=== PATIENT | female | born 1935 | race Caucasian/White ===

== ENCOUNTER 2021-03-27 11:01 | Observation (INO) | payer MEDICARE, BC ==
[2021-03-27] MEDS ORDERED: Verapamil 5 MG/2 ML VIAL ONE (12:05)
[2021-03-27] MEDS ORDERED: Heparin 10,000 UNITS/ 10 ML VIAL ONE (12:05)
[2021-03-27] MEDS ORDERED: Adenosine 6 MG/2 ML VIAL ONE (12:05)
[2021-03-27] MEDS ORDERED: Nitroglycerin 50 MG/250 ML BOT 250 ML ONE (12:05)
[2021-03-27 12:06] LABS: #Basophils 0.1 10x3/uL (0.0-0.2); #Eosinphils 0.2 10x3/uL (0.0-0.5); #Neutrophils 4.1 10x3/uL (1.5-8.4); %Basophils 0.7 % (0.0-2.0); %Eosinophils 3.1 % (0.0-6.0); %Neutrophils 60.8 % (40.0-75.0); Mean Corpuscular HGB CONC 34.1 g/dL (32.0-36.0); Mean Corpuscular Hemoglobin 31.5 pg (27.0-33.0); Mean Corpuscular Volume 92.6 fl (81.6-98.3); Platelet Count 251 10x3/uL (150-450); Red Blood Cell (RBC) Count 4.44 10x6/uL (3.90-5.03); White Blood Cell (WBC) Count 6.8 10x3/uL (3.5-10.5)
[2021-03-27] MEDS ORDERED: Ondansetron PF 4 MG/2 ML Vial ONE (12:06)
[2021-03-27] MEDS ORDERED: Atropine Sulfate 0.4 mg/1 ml Vial ONE (12:06)
[2021-03-27] MEDS ORDERED: Bivalirudin 250 MG VIAL ONE (12:06)
[2021-03-27] MEDS ORDERED: Midazolam HCl 2 mg/2 ml Vial ONE (12:07)
[2021-03-27] MEDS ORDERED: Fentanyl 100 MCG/2 ML VIAL ONE (12:07)
[2021-03-27] MEDS ORDERED: Nitroglycerin 2% Ointment 1 INCH/1 GM Packet ONE (12:10)
[2021-03-27] MEDS ORDERED: Aspirin Chewable 81 MG TAB ONE (12:11)
[2021-03-27] MEDS ORDERED: Morphine 4 MG/ML VIAL ONE (12:12)
[2021-03-27 12:16] LABS: ALT (SGPT) 23 U/L (8-55); AST (SGOT) 21 U/L (5-34); Albumin 4.4 g/dL (3.4-4.8); Alkaline Phosphatase 33 U/L (40-110); Anion Gap 15 mmol/L (10-20); BUN (Urea Nitrogen) 13 mg/dL (9.8-20.1); Bilirubin, Total 0.4 mg/dL (0.2-1.2); CK (CPK) 30 U/L (29-168); Calc. Creatinine Clearance 0 mL/min (70-130); Calcium 9.4 mg/dL (7.8-10.44); Carbon Dioxide 23 mmol/L (23-31); Chloride 95 mmol/L (98-107); Globulin 2.9 g/dL (2.4-3.5); Glucose 109 mg/dL (83-110); Lipase 49 U/L (8-78); Potassium 4.4 mmol/L (3.5-5.1); Protein, Total 7.3 g/dL (5.8-8.1); Sodium 129 mmol/L (136-145)
[2021-03-27] MEDS ORDERED: Lidocaine 1% PF 5 ML VIAL ONE (12:47)
[2021-03-27] MEDS ORDERED: HYDROcodone/Acetaminophen 10/325 mg Tablet PO PRN (12:50)
[2021-03-27] MEDS ORDERED: Acetaminophen 325 MG TAB PO PRN (12:50)
[2021-03-27] MEDS ORDERED: Ondansetron ODT 4 MG TAB PO PRN (12:50)
[2021-03-27] MEDS ORDERED: Senokot S 8.6-50 MG TAB PO PRN (12:50)
[2021-03-27] MEDS ORDERED: Loperamide HCl 2 MG CAP PO PRN (12:50)
[2021-03-27] MEDS ORDERED: Zolpidem Tartrate 5 MG TAB PO PRN (12:50)
[2021-03-27] MEDS ORDERED: FLU VACC QS2021-22(65YR UP)/PF 240 MCG/0.7 ML SYRINGE IM ONE (16:30)
[2021-03-27 20:12] VITALS: BP 129/60; TEMP 98.4
[2021-03-27] MEDS ORDERED: Famotidine 20 MG TAB PO SCH (21:00)
[2021-03-27] MEDS ORDERED: LOVASTATIN 20 MG PO SCH (21:00)
[2021-03-27] MEDS ORDERED: metFORMIN 500 MG TAB PO SCH (21:00)
[2021-03-28] MEDS ORDERED: Aspirin 81 mg Enteric Coated Tablet PO SCH (09:00)
[2021-03-28] MEDS ORDERED: SITAGLIPTIN PHOSPHATE 100 MG PO SCH (09:00)
[2021-03-28] MEDS ORDERED: ALPRAZolam 0.5 MG TAB PO SCH (09:00)
[2021-03-28] MEDS ORDERED: Enoxaparin Sodium 40 MG/0.4 ML SYRINGE SC SCH (09:00)
[2021-03-28] MEDS ORDERED: Lisinopril 20 MG TAB PO SCH (09:00)
[2021-03-28] MEDS ORDERED: NIFEdipine XL 60 MG TAB PO SCH (09:00)
== END 2021-03-27 20:35 | disposition home or self-care (01) ==
LOC: CSHERS 11:01 → CSHCCL 15:58 → CSHTELE 17:06
PROVIDERS: ADMIT Specialist; ATTEND Specialist
DX: I25.110 Atherosclerotic heart disease of native coronary artery with unstable angina pectoris (principal); I10 Essential (primary) hypertension; E78.5 Hyperlipidemia, unspecified; E11.9 Type 2 diabetes mellitus without complications; Z79.899 Other long term (current) drug therapy; Z79.82 Long term (current) use of aspirin; Z79.84 Long term (current) use of oral hypoglycemic drugs
CPT/HCPCS: 71045; 80053; 82550; 83690; 84484; 85025; 93005; 93458; 96374; 99285; G0378; 99152; J0153; J0461; J0583; J1644; J2250; J2270; J2405; J3010

== ENCOUNTER 2022-10-22 06:33 | Emergency (ER) | payer MEDICARE, BC ==
[2022-10-22] MEDS ORDERED: Acetaminophen 500 MG TAB ONE ×2 (07:40→13:55)
[2022-10-22 09:11] LABS: #Basophils 0.1 10x3/uL (0.0-0.2); #Eosinphils 0.3 10x3/uL (0.0-0.5); #Monocytes 0.9 10x3/uL (0.0-1.1); #Neutrophils 4.1 10x3/uL (1.5-8.4); %Basophils 0.7 % (0.0-2.0); %Lymphocytes 22.8 % (18.0-47.0); %Monocytes 13.4 % (0.0-10.0); %Neutrophils 58.8 % (40.0-75.0); Hematocrit 40.5 % (34.9-44.5); Hemoglobin 13.5 g/dL (12.0-15.5); Mean Corpuscular HGB CONC 33.3 g/dL (32.0-36.0); Mean Corpuscular Hemoglobin 31.8 pg (27.0-33.0); Mean Corpuscular Volume 95.3 fl (81.6-98.3); Mean Platelet Volume 8.4 fl (7.4-10.4); Platelet Count 245 10x3/uL (150-450); RBC Distribution Width 12.8 % (11.5-14.5); Red Blood Cell (RBC) Count 4.25 10x6/uL (3.90-5.03); White Blood Cell (WBC) Count 6.9 10x3/uL (3.5-10.5)
[2022-10-22 09:45] LABS: Troponin I Less than 0.010 ng/mL (< 0.028)
[2022-10-22 10:15] LABS: ALT (SGPT) 18 U/L (8-55); AST (SGOT) 22 U/L (5-34); Albumin 4.1 g/dL (3.4-4.8); Alkaline Phosphatase 33 U/L (40-110); Anion Gap 17 mmol/L (10-20); BUN (Urea Nitrogen) 18 mg/dL (9.8-20.1); Bilirubin, Total 0.4 mg/dL (0.2-1.2); Calc. Creatinine Clearance 0 mL/min (70-130); Calcium 9.4 mg/dL (7.8-10.44); Carbon Dioxide 21 mmol/L (23-31); Chloride 100 mmol/L (98-107); Estimated GFR 67; Globulin 2.8 g/dL (2.4-3.5); Glucose 136 mg/dL (83-110); Magnesium 1.6 mg/dL (1.6-2.6); Potassium 4.5 mmol/L (3.5-5.1); Protein, Total 6.9 g/dL (5.8-8.1); Sodium 133 mmol/L (136-145)
[2022-10-22] MEDS ORDERED: Famotidine/PF 20 mg/2ml Vial ONE (10:51)
== END 2022-10-22 14:46 | disposition home or self-care (01) ==
LOC: CSHERS 06:33
DX: I10 Essential (primary) hypertension (principal); I25.10 Atherosclerotic heart disease of native coronary artery without angina pectoris; E78.5 Hyperlipidemia, unspecified; E11.9 Type 2 diabetes mellitus without complications; Z79.84 Long term (current) use of oral hypoglycemic drugs; Z79.899 Other long term (current) drug therapy
CPT/HCPCS: 36415; 70450; 71045; 80053; 83735; 83880; 84443; 84484; 85025; 93005; 96374; S0028

== ENCOUNTER 2024-02-28 04:06 | Emergency (ER) | payer MEDICARE, BC ==
[2024-02-28 05:05] LABS: #Basophils 0.03 10x3/uL (0.0-0.2); #Eosinophils 0.04 10x3/uL (0.0-0.5); #Monocytes 1.27 10x3/uL (0.0-1.1); #Neutrophils 7.08 10x3/uL (1.5-8.4); %Basophils 0.3 % (0.0-2.0); %Eosinophils 0.4 % (0.0-6.0); %Lymphocytes 12.8 % (18.0-47.0); %Monocytes 13.1 % (0.0-10.0); %Neutrophils 73.1 % (40.0-75.0); Hematocrit 37.2 % (34.9-44.5); Mean Corpuscular HGB CONC 32.3 g/dL (32.0-36.0); Mean Corpuscular Hemoglobin 29.2 pg (27.0-33.0); Mean Corpuscular Volume 90.5 fL (81.6-98.3); Mean Platelet Volume 7.9 fL (7.4-10.4); Platelet Count 276 10x3/uL (150-450); Red Blood Cell (RBC) Count 4.11 10x6/uL (3.90-5.03); White Blood Cell (WBC) Count 9.69 10x3/uL (3.5-10.5)
[2024-02-28 05:23] LABS: ALT (SGPT) 8 U/L (8-55); AST (SGOT) 11 U/L (5-34); Albumin 3.6 g/dL (3.4-4.8); Alkaline Phosphatase 40 U/L (40-110); Anion Gap 15 mmol/L (10-20); BUN (Urea Nitrogen) 17 mg/dL (9.8-20.1); Bilirubin, Total 0.3 mg/dL (0.2-1.2); Calc. Creatinine Clearance 0 mL/min (70-130); Calcium 9.3 mg/dL (7.8-10.44); Carbon Dioxide 22 mmol/L (23-31); Chloride 101 mmol/L (98-107); Estimated GFR 43; Globulin 3.2 g/dL (2.4-3.5); Glucose 157 mg/dL (83-110); Lipase 52 U/L (8-78); Magnesium 1.4 mg/dL (1.6-2.6); Potassium 4.3 mmol/L (3.5-5.1); Protein, Total 6.8 g/dL (5.8-8.1); Sodium 134 mmol/L (136-145)
[2024-02-28 05:29] LABS: Troponin I Less than 0.010 ng/mL (< 0.028)
[2024-02-28] MEDS ORDERED: fentaNYL 50 mcg/mL 1 mL Vial ONE (05:35)
[2024-02-28] MEDS ORDERED: Magnesium 2 GM/50 ML BAG (IN WATER) ONE (05:35)
[2024-02-28] MEDS ORDERED: Ondansetron PF 4 MG/2 ML Vial ONE (05:35)
[2024-02-28 05:43] LABS: Bilirubin Neg (Negative); Blood, Urine 25 (Negative); Clarity Slightly Cloudy (Clear); Glucose, Urine (Dipstick) Normal (Negative); Ketone, Urine Negative (Negative); Leukocyte 500 (Negative); Nitrite Positive (Negative); Protein, Urine (Dipstick) 30 mg/dl (Neg-Trace); Specific Gravity, Urine 1.015 (1.005-1.030); Urobilinogen Normal mg/dL (Less than 2)
[2024-02-28 05:59] LABS: Bacteria/HPF 4+ HPF (None Seen); CAUTI Indications for Culture Pelvic or flank pain; RBC/HPF 0-3 HPF (0-3); Squamous Epithelial 0-3 HPF (0-3); WBC/HPF Greater Than 50 HPF (0-3)
[2024-02-28 06:00] LABS: Urine Culture Reflex Yes Yes
[2024-02-28] MEDS ORDERED: cefTRIAXone (ROCEPHIN) 2 GM VIAL ONE (08:37)
[2024-02-28] MEDS ORDERED: Iopamidol 370 76% 100 ML VIAL ONE (09:44)
== END 2024-02-28 10:32 | disposition home or self-care (01) ==
LOC: CSHERS 04:06
DX: N39.0 Urinary tract infection, site not specified (principal); I25.10 Atherosclerotic heart disease of native coronary artery without angina pectoris; E11.9 Type 2 diabetes mellitus without complications; I10 Essential (primary) hypertension; E78.5 Hyperlipidemia, unspecified; Z79.899 Other long term (current) drug therapy
CPT/HCPCS: 74177; 80053; 81001; 83690; 83735; 84484; 85025; 87077; 87086; 87186; 93005; J0696; J2405; J3010; J3475; Q9967; 36415; 51701; 96361; 96365; 96375